=== PATIENT | female | born 1995 | race American Indian/Alaskan Native ===

== ENCOUNTER 2017-03-08 18:27 | Emergency (ER) | payer SELFPAY ==
[2017-03-08] MEDS ORDERED: ATIVAN IV ONE ×2 (19:17→21:00)
[2017-03-08] MEDS ORDERED: NACL 0.9% 1000 ML 1,000 ML IV ONE ×2 (19:17→21:00)
--- NOTE | 2017-03-08 19:18 | Emergency Department Report ---
ED General Adult HPI - General Chief complaint: Anxiety Stated complaint: SHAKY,NAUSEA/LIGHT HEADED/ANXIETY Time Seen by Provider: 03/08/17 19:16 Source: patient Mode of arrival: Ambulatory Limitations: No Limitations - History of Present Illness Initial comments: 21-year-old female with no significant past medical history presenting today because of palpitations and anxiety. Patient states that she had smoked some marijuana with her friend earlier today. Soon after her friend attempted to kill himself and was brought to the hospital for evaluation. Patient states that she started getting very anxious and started having palpitations as well as chest pain soon after. - Related Data Home Medications Medication Instructions Recorded Confirmed Last Taken No Known Home Medications [No 03/08/17 03/08/17 Unknown Reported Home Medications] Allergies Allergy/AdvReac Type Severity Reaction Status Date / Time No Known Allergies Allergy Verified 03/09/17 01:22 ED Review of Systems ROS: Stated complaint: SHAKY,NAUSEA/LIGHT HEADED/ANXIETY Other details as noted in HPI Comment: All other systems reviewed and negative Constitutional: denies: chills, fever Respiratory: denies: cough Cardiovascular: palpitations Gastrointestinal: denies: abdominal pain, vomiting Genitourinary: denies: dysuria Skin: denies: rash Neurological: denies: headache Psychiatric: anxiety ED Past Medical Hx - Past Medical History Previous Medical History?: Yes Additional medical history: Pilonidal cyst - Surgical History Past Surgical History?: No - Social History Smoking Status: Current Every Day Smoker Substance Use Type: Alcohol, Marijuana - Medications Home Medications: Home Medications Medication Instructions Recorded Confirmed Last Taken Type No Known Home Medications [No 03/08/17 03/08/17 Unknown History Reported Home Medications] ED Physical Exam - General Limitations: No Limitations General appearance: alert, in no apparent distress - Head Head exam: Present: atraumatic - Eye Eye exam: Present: normal appearance - ENT ENT exam: Present: normal exam - Respiratory Respiratory exam: Present: normal lung sounds bilaterally. Absent: respiratory distress - Cardiovascular Cardiovascular Exam: Present: normal rhythm, tachycardia - GI/Abdominal GI/Abdominal exam: Present: soft. Absent: distended, tenderness - Extremities Exam Extremities exam: Present: normal inspection - Neurological Exam Neurological exam: Present: alert, oriented X3. Absent: motor sensory deficit - Psychiatric Psychiatric exam: Present: anxious - Skin Skin exam: Present: intact ED Course Vital Signs 03/08/17 03/08/17 03/08/17 18:47 19:14 19:16 Temperature 98.5 F Pulse Rate 150 H 137 H 133 H Respiratory 22 19 21 Rate Blood Pressure 126/74 122/78 Blood Pressure [Left] O2 Sat by Pulse 98 100 100 Oximetry 03/08/17 03/08/17 03/08/17 19:23 19:30 19:45 Temperature Pulse Rate 121 H 123 H Respiratory 20 18 19 Rate Blood Pressure 102/54 Blood Pressure [Left] O2 Sat by Pulse 98 58 L Oximetry 03/08/17 03/08/17 03/08/17 20:00 20:15 20:34 Temperature Pulse Rate 131 H 120 H 133 H Respiratory 15 12 15 Rate Blood Pressure 104/60 110/70 110/70 Blood Pressure [Left] O2 Sat by Pulse 100 100 100 Oximetry 03/08/17 03/08/17 03/08/17 20:45 21:00 21:15 Temperature Pulse Rate 127 H 130 H 126 H Respiratory 22 16 22 Rate Blood Pressure 109/72 110/74 127/86 Blood Pressure [Left] O2 Sat by Pulse 100 100 100 Oximetry 03/08/17 03/08/17 03/08/17 21:30 21:45 22:00 Temperature Pulse Rate 121 H 129 H 123 H Respiratory 31 H 21 24 Rate Blood Pressure 116/70 128/84 125/92 Blood Pressure [Left] O2 Sat by Pulse 100 87 97 Oximetry 03/08/17 03/08/17 03/08/17 22:15 22:32 22:46 Temperature Pulse Rate 122 H Respiratory 31 H Rate Blood Pressure 123/82 116/70 116/70 Blood Pressure [Left] O2 Sat by Pulse 87 92 89 Oximetry 03/08/17 03/08/17 03/08/17 23:00 23:16 23:53 Temperature Pulse Rate 121 H 128 H 112 H Respiratory 19 19 24 Rate Blood Pressure 116/70 110/53 Blood Pressure 126/92 [Left] O2 Sat by Pulse 95 90 99 Oximetry 03/09/17 02:10 Temperature Pulse Rate 99 H Respiratory 24 Rate Blood Pressure Blood Pressure 128/68 [Left] O2 Sat by Pulse 99 Oximetry - Reevaluation(s) Reevaluation #1: 03/08/17 21:01 Lesions are reviewed and improved to 120, improvement in anxiety and palpitations but still present Reevaluation #2: 03/09/17 01:49 Patient states that she has had known baseline tachycardia in the 110-120 without clear etiology, given the patient has no clear tachycardia a d-dimer was ordered. A d-dimer that was done which was slightly positive so a CTA is currently being done. ED Medical Decision Making - Lab Data Result diagrams: 03/08/17 19:14 03/08/17 19:14 - Medical Decision Making IV, labs, IVF, Ativan labs unremarkable patient staying tachcyardic despite fluids and ativan and is a tobacco smoker so d-dimer done CTA negative +for marijuana cocaine and amphetamines, likely reason for patient's symptoms. Critical care attestation.: If time is entered above; I have spent that time in minutes in the direct care of this critically ill patient, excluding procedure time. ED Disposition Clinical Impression: Tachycardia, Substance abuse Disposition: DISCHARGED TO HOME OR SELFCARE Is pt being admited?: No Does the pt Need Aspirin: No Condition: Stable Instructions: Cocaine Abuse (ED), Polysubstance Abuse (ED) Additional Instructions: Please follow up with the primary care physician in the next 3-5 days. Return to the ER if your symptoms worsen significantly or you develop new symptoms. Referrals: PRIMARY CARE, [Primary Care Provider] - 3-5 Days
[2017-03-08 19:25] LABS: Basophils % (Auto) 0.4 % (0.0-1.8); Eosinophils % (Auto) 0.1 % (0.0-4.3); Hematocrit 43.8 % (30.3-42.9); Hemoglobin 15.4 gm/dl (10.1-14.3); Mean Corpuscular HGB Conc 35 % (30-34); Mean Corpuscular Hemoglobin 33 pg (28-32); Mean Corpuscular Volume 93 fl (79-97); Platelet Count 356 K/mm3 (140-440); Red Cell Distribution Width 14.3 % (13.2-15.2); White Blood Count 14.8 K/mm3 (4.5-11.0)
[2017-03-08 19:43] LABS: Anion Gap 25 mmol/L; BUN/Creatinine Ratio 11.25; Blood Urea Nitrogen 9 mg/dL (7-17); Calcium 10.2 mg/dL (8.4-10.2); Carbon Dioxide 18 mmol/L (22-30); Chloride 99.5 mmol/L (98-107); Glucose 95 mg/dL (65-100); Potassium 3.5 mmol/L (3.6-5.0); Sodium 139 mmol/L (137-145)
[2017-03-08 20:44] LABS: Urine Drugs of Abuse Note Disclamer
[2017-03-08 21:01] LABS: Bacteria,Urine 1+ /HPF (Negative); Bilirubin,Urine NEG (Negative); Blood,Urine MOD (Negative); Ketones,Urine 80 mg/dL (Negative); Leukocyte Esterase,Urine NEG (Negative); Mucus,Urine 3+ /HPF; Nitrite,Urine NEG (Negative); Urobilinogen,Urine < 2.0 mg/dL (<2.0)
[2017-03-09] MEDS ORDERED: NACL ONE (01:16)
--- NOTE | 2017-03-09 02:10 | Cat Scan Report ---
FINAL REPORT PROCEDURE: CT ANGIO CHEST TECHNIQUE: Computerized tomographic angiography of the chest was performed after the IV injection of iodinated nonionic contrast including image processing. The image data was postprocessed using 2-dimensional multiplanar reformatted (MPR) and 3-dimensional (MIP and/or volume rendered) techniques. HISTORY: tachy, dimer COMPARISON: No prior studies are available for comparison. FINDINGS: Heart and pericardium: Normal. Thoracic aorta: Normal. Pulmonary vasculature: Normal. Lymph nodes: No enlarged thoracic lymph nodes. Lungs: Normal. Pleural space: No effusion, thickening, or pneumothorax. Musculoskeletal structures: No significant abnormality. Upper abdominal structures: No significant abnormality. IMPRESSION: There is no evidence of pulmonary arterial emboli. The lungs are clear without infiltrate, effusion or pneumothorax.
[2017-03-09 02:12] VITALS: BP 128/68
--- NOTE | 2017-03-09 07:17 | XRay Report ---
Single view chest: History: Chest pain. Findings: Normal cardiomediastinal silhouette. Trachea is midline. No consolidation, pneumothorax or pleural effusion. Impression: No acute cardiopulmonary findings.
== END 2017-03-09 02:30 | disposition home or self-care (01) ==
LOC: ED 18:27
DX: R00.0 Tachycardia, unspecified (principal); F12.10 Cannabis abuse, uncomplicated; F17.200 Nicotine dependence, unspecified, uncomplicated
CPT/HCPCS: 36415; 71010; 71275; 80048; 80307; 81001; 81025; 84443; 84484; 85025; 85379; 93005; 93010; 96361; 96374; 96375; 99285; G0480; J2060; J7030; Q9967; 80320